=== PATIENT | female | born 1990 | race Hispanic/Latino ===

== ENCOUNTER 2021-07-01 08:20 | Inpatient (IN) | payer OTHER, MEDICAID ==
[~2021-07-01] VITALS: Ht 149.9 cm; Wt 66.2 kg
[2021-07-01] MEDS ORDERED: LACTATED RINGERS 1000ML 1,000 ML IV ONE (09:18)
[2021-07-01 09:24] LABS: HEMATOCRIT 32.8 % (36-48); MEAN CORPUSCULAR HEMOGLOBIN 27.4 pg (27.0-33.0); MEAN CORPUSCULAR HGB CONC 31.4 g/dL (32.0-36.0); MEAN CORPUSCULAR VOLUME 87.2 fL (79-99); RED BLOOD CELL COUNT(AUTO) 3.76 MIL/uL (4.00-5.50); RED CELL DISTRIBUTION WIDTH 13.5 % (11.0-15.5); WHITE BLOOD COUNT (AUTO) 7.1 K/uL (4.8-10.8)
[2021-07-01 09:26] LABS: APPEARANCE,URINE Cloudy (CLEAR); BILIRUBIN,URINE Negative (NEGATIVE); COLOR,URINE Yellow (YELLOW); GLUCOSE, URINE (UA) Negative (NEGATIVE); KETONES,URINE Trace mg/dL (NEGATIVE); LEUKOCYTE ESTERASE ,URINE Trace (NEGATIVE); NITRATE,URINE Negative (NEGATIVE); OCCULT BLOOD,URINE Negative (NEGATIVE); PROTEIN,URINE Trace mg/dL (NEGATIVE)
[2021-07-01] MEDS ORDERED: METOCLOPRAMIDE 10 MG/2 ML VIAL IVP SCH (09:30)
[2021-07-01] MEDS ORDERED: METOCLOPRAMIDE 10 MG/2 ML VIAL ONE (09:33)
[2021-07-01] MEDS ORDERED: CEFTRIAXONE 1G VIAL ONE (09:33)
[2021-07-01 09:34] LABS: AMPHET/METH SCREEN,URINE NEGATIVE (NEGATIVE); BARBITURATE SCREEN, URINE NEGATIVE (NEGATIVE); BENZODIAZEPINES SCREEN,URINE NEGATIVE (NEGATIVE); CANNABINOID SCREEN,URINE NEGATIVE (NEGATIVE); COCAINE SCREEN,URINE NEGATIVE (NEGATIVE); OPIATE SCREEN,URINE NEGATIVE (NEGATIVE); PHENCYCLIDINE SCREEN,URINE NEGATIVE (NEGATIVE)
[2021-07-01] MEDS: LACTATED RINGERS 1000ML 1,000 ML IV PRN ×2 (09:37→11:55)
[2021-07-01] MEDS ORDERED: OXYTOCIN-LR 20 UNITS/1000 ML 1,000 ML IV ONE ×2 (09:56→11:53)
[2021-07-01] MEDS ORDERED: CITRIC ACID/SODIUM CITRATE 30 ML UDCUP ONE (09:56)
[2021-07-01] MEDS ORDERED: CEFAZOLIN SODIUM 1 GM VIAL IVP PRN (10:00)
[2021-07-01] MEDS ORDERED: CITRIC ACID/SODIUM CITRATE 30 ML UDCUP PO SCH (10:00)
[2021-07-01] MEDS ORDERED: MORPHINE PF 100MG/10ML AMP IV ONE (10:06)
[2021-07-01] MEDS ORDERED: ONDANSETRON 4MG INJ ONE ×2 (10:06→10:08)
[2021-07-01] MEDS ORDERED: PHENYLEPHRINE HCL 10 MG/ML 1ML VIAL IV ONE (10:06)
[2021-07-01] MEDS ORDERED: FENTANYL CITRATE PF 50 MCG/1 ML 2ML VIAL ONE (10:07)
[2021-07-01 10:37] LABS: BACTERIA,URINE Rare /HPF (None Seen); RBC,URINE 0-1 /HPF (0-1); SQUAMOUS EPITHELIAL CELL,UR Rare /HPF (0-2); WBC,URINE 0-1 /HPF (0-1)
[2021-07-01] MEDS ORDERED: MEPERIDINE-PF 75 MG/ML SYG IM PRN (13:00)
[2021-07-01] MEDS ORDERED: 0.9%NACL 10ML VIAL IVP PRN (13:00)
[2021-07-01] MEDS ORDERED: OXYTOCIN-LR 20 UNITS/1000 ML 1,000 ML IV PRN (13:00)
[2021-07-01] MEDS ORDERED: PROMETHAZINE HCL 25 MG/ML 1ML AMPULE IM PRN (13:00)
[2021-07-01 16:10] VITALS: BP 113/73
[2021-07-01] MEDS: CEFAZOLIN SODIUM 1 GM VIAL IVP SCH (18:46)
[2021-07-01] MEDS: DEXTROSE 5 %-0.45 % NACL 1,000 ML IV PRN (19:25)
[2021-07-01 19:40] VITALS: BP 109/69
[2021-07-01] MEDS ORDERED: ACETAMINOPHEN WITH CODEINE 1 TAB TAB PO PRN (21:00)
[2021-07-01] MEDS ORDERED: NALOXONE HCL 0.4 MG/1 ML ML IVP PRN ×2 (21:00)
[2021-07-01] MEDS ORDERED: ONDANSETRON 4MG INJ IVP PRN (21:00)
[2021-07-01] MEDS ORDERED: DiphenhydrAMINE HCL 50 MG/ML VIAL IVP PRN (21:00)
[2021-07-01] MEDS ORDERED: EPHEDRINE SULFATE 50 MG/ML AMPULE IVP PRN (21:00)
[2021-07-01 23:03] VITALS: BP 106/67
[2021-07-02] MEDS: CEFAZOLIN SODIUM 1 GM VIAL IVP SCH ×2 (02:48→10:30)
[2021-07-02] MEDS: DEXTROSE 5 %-0.45 % NACL 1,000 ML IV PRN (03:27)
[2021-07-02 03:30] VITALS: BP 97/67
[2021-07-02 07:04] LABS: HEMATOCRIT 29.3 % (36-48); MEAN CORPUSCULAR HEMOGLOBIN 27.5 pg (27.0-33.0); MEAN CORPUSCULAR HGB CONC 31.7 g/dL (32.0-36.0); MEAN CORPUSCULAR VOLUME 86.7 fL (79-99); RED BLOOD CELL COUNT(AUTO) 3.38 MIL/uL (4.00-5.50); RED CELL DISTRIBUTION WIDTH 13.6 % (11.0-15.5); WHITE BLOOD COUNT (AUTO) 7.9 K/uL (4.8-10.8)
[2021-07-02 08:44] LABS: RAPID PLASMA REAGIN NONREACTIVE (NONREACTIVE)
[2021-07-02] MEDS ORDERED: BISACODYL 10 MG SUPP.RECT RC PRN (09:00)
[2021-07-02] MEDS ORDERED: DOCUSATE SODIUM 100 MG CAP PO SCH (09:00)
[2021-07-02] MEDS ORDERED: ACETAMINOPHEN 500 MG TABLET PO PRN (09:00)
[2021-07-02] MEDS ORDERED: LANOLIN 30GM OINTMENT TP PRN (09:00)
[2021-07-02] MEDS ORDERED: ACETAMINOPHEN WITH CODEINE 1 TAB TAB PO PRN (09:00)
[2021-07-02] MEDS ORDERED: HYDROCODONE/ACETAMINOPHEN 5/325 MG TAB PO PRN (09:00)
[2021-07-02] MEDS ORDERED: IBUPROFEN 600 MG TABLET PO PRN (09:00)
[2021-07-02 09:20] VITALS: BP 106/63
[2021-07-02] MEDS: SIMETHICONE 80 MG TAB.CHEW PO PRN ×2 (09:29→14:25)
[2021-07-02 11:20] VITALS: BP 105/67
== END 2021-07-02 15:00 | disposition home or self-care (01) | DRG 788 ==
LOC: EDH 08:20 → LDH 08:29 → OBSVTOIN 08:29 → WSH 16:10
PROVIDERS: ADMIT Obstetrics & Gynecology; ATTEND Obstetrics & Gynecology
PROC: 10D00Z1 Extraction of Products of Conception, Low, Open Approach (ICD-10-PCS; principal; 2021-07-01 10:11)
DX: O34.211 Maternal care for low transverse scar from previous cesarean delivery (principal); Z37.0 Single live birth; Z3A.37 37 weeks gestation of pregnancy
CPT/HCPCS: 36415; 59510; 80305; 81001; 85027; 86592; 86701; 86850; 86900; 86901; 87340; 87390; A4344; G0378; J0690; J0696; J2175; J2274; J2370; J2405; J2550; J2590; J2765; J3010; J7120